=== PATIENT | male | born 1940 | race Caucasian/White ===

== ENCOUNTER → 2019-11-28 | Outpatient (CLI) | payer OTHER ==
--- NOTE | 2019-11-28 16:22 | Diagnostic Imaging Report ---
History: Neck pain and radiculopathy Comparison studies: None Technique: Axial images were obtained through the cervical region. Coronal and sagittal images reconstructed from the axial data. Dose modulation, iterative reconstruction, and/or weight based adjustment of the mA/kV was utilized to reduce the radiation dose to as low as reasonably achievable. Intravenous contrast: None Findings: Atlantoaxial articulation: Intact Alignment: Straightening of the usual cervical curvature with mild levocurvature and 1 mm degenerative anterolisthesis of C4 on C5. Cervicomedullary junction: No abnormalities. Patent foramen magnum. Soft tissues: Scattered calcified atherosclerosis with calcified plaque in the bilateral carotid bulbs, carotid siphons and vertebral arteries. Vertebrae: No fractures, neoplasm or infection. 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 Degenerative changes: C2-C3: Mildly degenerated disc. Mild right foraminal stenosis due to uncovertebral arthrosis and moderate right facet arthrosis. No significant canal or left foraminal stenosis. C3-C4: Asymmetric right disc ossify complex without significant canal stenosis. Severe right foraminal stenosis due to uncovertebral arthrosis and severe right facet arthrosis. Mild left uncovertebral facet arthrosis without significant foraminal stenosis. C4-C5: Mildly degenerated disc. Minimal anterolisthesis of C4 and C5 with associated uncovered disc without significant canal stenosis. Mild bilateral foraminal stenosis due to uncovertebral arthrosis and moderate facet arthrosis. C5-C6: Moderately degenerated disc with loss of disc height and mild degenerative endplate changes. Calcified complex results in only mild canal stenosis. Severe right and mild left foraminal stenosis due to uncovertebral and mild facet arthrosis. C6-C7: Moderately degenerated disc with loss of disc height. Disc osteophyte complex results in only mild canal stenosis. Mild bilateral foraminal stenosis due to uncovertebral arthrosis C7-T1: Mild to moderately degenerated disc. Mild right foraminal stenosis due to severe right facet arthrosis. Mild left facet arthrosis. Patent canal and left foramen. IMPRESSION: 1. 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 2. Multilevel degenerative foraminal stenosis, worse/severe on the right at C3-C4 and at C5-C6. 3. Advanced multilevel facet arthrosis. 4. No significant canal stenosis. Signed by: Dr. Jose J Ruiz M.D. on 11/28/2019 4:20 PM
== END ==
LOC: CT 15:39
PROVIDERS: ATTEND Family Medicine
DX: M54.12 Radiculopathy, cervical region (principal)
CPT/HCPCS: 72125